=== PATIENT | male | born 1945 | race Caucasian/White ===

== ENCOUNTER 2019-05-20 13:55 | Outpatient (CLI) | payer OTHER, SELFPAY ==
[2019-05-20 14:26] LABS: Basophils # 0.1 10^3/uL (0.0-0.1); Basophils % 0.7 %; Eosinophils # 0.2 10^3/uL (0.0-0.8); Eosinophils % 2.2 %; Hematocrit 39.2 % (42.0-52.0); Hemoglobin 12.4 g/dL (11.7-16.6); Lymphocytes # 0.9 10^3/uL (0.8-4.8); Lymphocytes % 10.2 %; Mean Corpuscular HGB Conc 31.6 g/dL (30.0-36.0); Mean Corpuscular Hemoglobin 31.4 pg (28.0-34.0); Mean Corpuscular Volume 99.2 fL (80-94); Mean Platelet Volume 10.2 fL (7.4-10.4); Monocytes # 0.5 10^3/uL (0.2-0.9); Monocytes % 5.8 %; Neutrophils # 7.3 10^3/uL (1.8-7.7); Neutrophils % 80.8 %; Nucleated Red Blood Cells % 0 %; Platelet Count 247 10^3/cmm (130-400); Red Blood Count 3.95 10^6/uL (4.1-5.3)
--- NOTE | 2019-05-20 16:43 | ONC FU_ITS ---
Dr. Menendez follow up note Patient: Valdo Cotto Unit #: [id number]: 1945 Dicatated By: Vania Menendez M.D.Date of Visit:May 20, 2019 Onc Med Follow-up/Prog Note History of Present Illness: Mr. Valdo Cotto, is a 73-year-old gentleman with long-standing history of mild to moderate anemia in the past he was monitored for fluctuating hemoglobin till about 2 years ago when he was started on oral iron once a day and then about 3 months ago his exterminator helper who was following him for mild renal insufficiency increased his iron dose to 2 pills a day. Patient is tolerating oral iron well. And his CBC done on 12/10/2018 showed white blood count 6.7 hemoglobin 10.9 hematocrit 33.8 platelets 181,000 MCV 100.6 with a normal differential. Patient said he underwent colonoscopy about 4 years ago at that time about 4 polyps were removed and there were benign and now he is scheduled for follow-up colonoscopy in a year or so At the same time he underwent EGD for dysphagia and was found to have esophageal spasm but normal gastric findings. Patient also underwent capsule endoscopy about year ago, and was unremarkable. Never had blood transfusion. Patient has history of osteoarthritis, mild renal insufficiency and diabetes Patient denies any jaundice denies any dyspnea on exertion or palpitation denies any night sweats denies any recent fever but intentional weight loss since he start watching his diet and not consuming carbonated beverages and sugar and also cut down salt. Came for follow-up, denies any specific complaints, no fever or chills, no nausea or vomiting, no diarrhea constipation, no shortness of breath or palpitation, tolerating oral iron twice a day well. Medications: Acetaminophen Extra Strength 1 Tablet (of 500 mg) Oral four times a day PRN, Aspirin 1 Tablet (of 81 mg) Oral daily, Atorvastatin Calcium 1 Tablet (of 80 mg) Oral daily, Coenzyme Q10 1 Tablet (of 200 mg) Oral daily, dilTIAZem CD 1 Capsule (of 180 mg) Capsule SR 24 HR Oral daily, dilTIAZem HCl 1 Tablet (of 60 mg) Oral PRN, Dronedarone HCl 1 Tablet (of 400 mg) Oral b.i.d., Eliquis 1 Tablet (of 5 mg) Oral b.i.d., Ferrous Sulfate 1 Tablet (of 325 (65 fe) mg) Oral b.i.d., Fish Oil 1 Capsule (of 1000 mg) Oral b.i.d., Gabapentin 1 Tablet (of 600 mg) Oral b.i.d., Garlic 1 Capsule (of 1000 mg) Oral daily, glipiZIDE 1 Tablet (of 20 mg) Oral b.i.d., Hydrocortisone 1 (2.5 %) Cream Topical PRN, Insulin Glargine 55 Units (of 100 Units/mL) Subcutaneous daily, Lasix 1 Tablet (of 60 mg) Oral b.i.d., Losartan Potassium 1 Tablet (of 50 mg) Oral daily, Magnesium Oxide 1 Tablet (of 500 mg) Oral daily, Melatonin 1 Tablet (of 6 mg) Oral at bedtime, Metoprolol Succinate ER 1 Tablet (of 150 mg) Tablet SR 24 HR Oral daily, Multivitamin Adults 1 Tablet Oral daily, Nitrostat Tablet, sublingual Sublingual PRN, Tamsulosin HCl 1 Capsule (of 0.4 mg) Oral daily, traMADol HCl 1 Tablet (of 50 mg) Oral b.i.d. PRN, Vitamin D 1 Tablet Oral daily Allergies: ambien, Meloxicam, morphine, Zetia, and Zocor. Review of Systems: Review of Systems is not available for this patient. Vital Signs: Performed on May 20, 2019 15:34 Height - 68.00 in Weight - 251.8 lbs (LOW) BSA - 2.25 sq.m BMI - 38.29 (HIGH) Temperature - 98.8 F Pulse - 64 /min Respiration - 24 /min BP - 164/67 mm(hg) (HIGH) O2 Sat - 98 % Pain - 8 Performance Status: Perf. Status is not available for this patient. Physical Examination: ENMT - No oral exudates, ulcers, masses, thrush or mucositis. Oropharynx clear. Tongue normal, Respiratory - Lungs are clear to auscultation without rhonchi or wheezing, Cardiovascular - Regular rate and rhythm of heart, Abdomen - Non-tender, non-distended, Good bowel sounds. No guarding or rebound tenderness. No pulsatile masses, Extremities - no edema. Lab/Imaging: Test performed on Jan 09, 2019 13:55 WBC 10.2 10 3/uL RBC 3.91 10 6/uL HGB 12.3 g/dL HCT 38.4 % MCV 98.2 fl MCH 31.5 pg MCHC 32.0 g/dl RDW 14.3 % Platelet Count 238 10 3/cmm MPV 10.7 fl Neutrophils 8.2 10 3/uL Lymphocytes 1.0 10 3/uL Monocytes 0.7 10 3/uL Eosinophils 0.2 10 3/uL Basophils 0.0 10 3/uL Neutrophil % 80.5 % Lymphocyte % 9.4 % Monocyte % 7.1 % Eosinophil % 2.0 % Basophils % 0.2 % Impression: History of iron deficiency anemia responding well to oral iron supplement with normalization of hemoglobin as per CBC done on 01/09/2019 showed white blood count 10.2 hemoglobin 12.3 hematocrit 38.4, platelets 238,000 History of osteoarthritis History of mild renal insufficiency Diabetes mellitus Hypertension/CAD Atrial fibrillation Plan: Discussed with patient regarding his labs white blood count 9 hemoglobin 12.4 crit 39 platelets 247,000 Clinically, patient doing well, more energetic, tolerating oral iron well, hemoglobin is a normal range. At this point we will reduce his iron supplement to 1 tablet a day along with vitamin C and patient return to clinic in 3 months with CBC and iron studies and if it stay within normal limits then we'll see him on as-needed basis on the other hand if there is a drop in his iron stores, may consider parenteral iron. Signed By: Vania Menendez M.D. <<Signature on File>>
== END 2019-05-20 13:56 | disposition home or self-care (01) ==
PROVIDERS: Family Provider Internal Medicine; PCP Internal Medicine; Visit Provider Internal Medicine Hematology & Oncology
DX: D50.9 Iron deficiency anemia, unspecified (principal); M19.90 Unspecified osteoarthritis, unspecified site; E11.22 Type 2 diabetes mellitus with diabetic chronic kidney disease; I12.9 Hypertensive chronic kidney disease with stage 1 through stage 4 chronic kidney disease, or unspecified chronic kidney disease; N18.2 Chronic kidney disease, stage 2 (mild); I25.10 Atherosclerotic heart disease of native coronary artery without angina pectoris; I48.91 Unspecified atrial fibrillation; Z79.82 Long term (current) use of aspirin; Z79.891 Long term (current) use of opiate analgesic
CPT/HCPCS: 85025; G0463

== ENCOUNTER → 2019-07-29 08:25 | Outpatient (BNVA) | payer OTHER, SELFPAY | PROVIDERS: Family Provider Internal Medicine; PCP Internal Medicine; Referring Provider Internal Medicine; Visit Provider Specialist | DX: G51.0 Bell's palsy (principal) | CPT/HCPCS: 99204 ==

== ENCOUNTER 2019-08-20 13:59 | Outpatient (CLI) | payer OTHER, SELFPAY ==
[2019-08-20 14:29] LABS: Basophils % 0.4 %; Eosinophils # 0.2 10^3/uL (0.0-0.8); Eosinophils % 2.3 %; Hematocrit 39.1 % (42.0-52.0); Hemoglobin 12.7 g/dL (11.7-16.6); Lymphocytes # 0.8 10^3/uL (0.8-4.8); Lymphocytes % 10.8 %; Mean Corpuscular HGB Conc 32.5 g/dL (30.0-36.0); Mean Corpuscular Hemoglobin 30.5 pg (28.0-34.0); Mean Corpuscular Volume 93.8 fL (80-94); Mean Platelet Volume 9.6 fL (7.4-10.4); Monocytes # 0.5 10^3/uL (0.2-0.9); Monocytes % 7.2 %; Neutrophils # 5.8 10^3/uL (1.8-7.7); Neutrophils % 78.8 %; Nucleated Red Blood Cells % 0 %; Platelet Count 175 10^3/cmm (130-400); Red Blood Count 4.17 10^6/uL (4.1-5.3); Red Cell Distribution Width 15.6 % (12.1-15.1); White Blood Count 7.4 10^3/uL (4.0-10.0)
[2019-08-20 14:53] LABS: Ferritin 149 ng/mL (30-400); Iron 56 ug/dL (59-158); Percent Saturation 20.2 % (20-50); Total Iron Binding Capacity 276 mcg/dl; Unsaturated Iron Binding 220 ug/dL (112-347)
--- NOTE | 2019-08-20 15:23 | ONC FU_ITS ---
Dr. Menendez follow up note Patient: Valdo Cotto Unit #: [id number]: 1945 Dicatated By: Vania Menendez M.D.Date of Visit:Aug 20, 2019 Onc Med Follow-up/Prog Note History of Present Illness: Mr. Valdo Cotto, is a 74-year-old gentleman with long-standing history of mild to moderate anemia in the past he was monitored for fluctuating hemoglobin till about 2 years ago when he was started on oral iron once a day and then about 3 months ago his night order selector who was following him for mild renal insufficiency increased his iron dose to 2 pills a day. Patient is tolerating oral iron well. And his CBC done on 12/10/2018 showed white blood count 6.7 hemoglobin 10.9 hematocrit 33.8 platelets 181,000 MCV 100.6 with a normal differential. Patient said he underwent colonoscopy about 4 years ago at that time about 4 polyps were removed and there were benign and now he is scheduled for follow-up colonoscopy in a year or so At the same time he underwent EGD for dysphagia and was found to have esophageal spasm but normal gastric findings. Patient also underwent capsule endoscopy about year ago, and was unremarkable. Never had blood transfusion. Patient has history of osteoarthritis, mild renal insufficiency and diabetes Patient denies any jaundice denies any dyspnea on exertion or palpitation denies any night sweats denies any recent fever but intentional weight loss since he start watching his diet and not consuming carbonated beverages and sugar and also cut down salt. Came for follow-up, denies any specific complaints except since his last visit, episode of fall and he stopped taking baby aspirin since then. Otherwise no melena or hematochezia no hemoptysis or hematemesis no jaundice, no hematuria or dysuria, no shortness of breath or palpitation at rest,, tolerating oral iron twice a day well. Medications: Acetaminophen Extra Strength 1 Tablet (of 500 mg) Oral four times a day PRN, Atorvastatin Calcium 1 Tablet (of 80 mg) Oral daily, Coenzyme Q10 1 Tablet (of 200 mg) Oral daily, dilTIAZem CD 1 Capsule (of 180 mg) Capsule SR 24 HR Oral daily, dilTIAZem HCl 1 Tablet (of 60 mg) Oral PRN, Dronedarone HCl 1 Tablet (of 400 mg) Oral b.i.d., Eliquis 1 Tablet (of 5 mg) Oral b.i.d., Ferrous Sulfate 1 Tablet (of 325 (65 fe) mg) Oral b.i.d., Fish Oil 1 Capsule (of 1000 mg) Oral b.i.d., Gabapentin 1 Tablet (of 600 mg) Oral b.i.d., Garlic 1 Capsule (of 1000 mg) Oral daily, glipiZIDE 1 Tablet (of 20 mg) Oral b.i.d., Hydrocortisone 1 (2.5 %) Cream Topical PRN, Insulin Glargine 55 Units (of 100 Units/mL) Subcutaneous daily, Lasix 1 Tablet (of 60 mg) Oral b.i.d., Losartan Potassium 1 Tablet (of 50 mg) Oral daily, Magnesium Oxide 1 Tablet (of 500 mg) Oral daily, Melatonin 1 Tablet (of 6 mg) Oral at bedtime, Metoprolol Succinate ER 1 Tablet (of 150 mg) Tablet SR 24 HR Oral daily, Multivitamin Adults 1 Tablet Oral daily, Nitrostat Tablet, sublingual Sublingual PRN, Tamsulosin HCl 1 Capsule (of 0.4 mg) Oral daily, traMADol HCl 1 Tablet (of 50 mg) Oral b.i.d. PRN, Vitamin D 1 Tablet Oral daily Allergies: ambien, Meloxicam, morphine, Zetia, and Zocor. Review of Systems: Review of Systems is not available for this patient. Vital Signs: Performed on Aug 20, 2019 14:59 Height - 68.00 in Weight - 248.2 lbs (LOW) BSA - 2.24 sq.m BMI - 37.74 (HIGH) Temperature - 99.2 F (HIGH) Pulse - 55 /min (LOW) Respiration - 24 /min BP - 134/61 mm(hg) O2 Sat - 96 % Pain - 0 Performance Status: 1 - No physically strenuous activity, but ambulatory and able to carry out light or sedentary work (e.g. office work, light house work). (ECOG) Physical Examination: ENMT - No mouth sores, no thrush, no jaundice, Respiratory - Lungs are clear, Cardiovascular - irRegular rate and rhythm, Abdomen - Soft, bowel sounds present, Extremities - No visible edema. Lab/Imaging: Test performed on Aug 20, 2019 14:15 WBC 7.4 10 3/uL RBC 4.17 10 6/uL HGB 12.7 g/dL HCT 39.1 % MCV 93.8 fL MCH 30.5 pg MCHC 32.5 g/dL RDW 15.6 % Platelet Count 175 10 3/cmm MPV 9.6 fL Neutrophils 5.8 10 3/uL Lymphocytes 0.8 10 3/uL Monocytes 0.5 10 3/uL Eosinophils 0.2 10 3/uL Basophils 0.0 10 3/uL Neutrophil % 78.8 % Lymphocyte % 10.8 % Monocyte % 7.2 % Eosinophil % 2.3 % Basophils % 0.4 % NRBC % 0 % Impression: History of iron deficiency anemia responding well to oral iron supplement with normalization of hemoglobin as per CBC done on 01/09/2019 showed white blood count 10.2 hemoglobin 12.3 hematocrit 38.4, platelets 238,000 History of osteoarthritis History of mild renal insufficiency Diabetes mellitus Hypertension/CAD Atrial fibrillation Plan: Discussed with patient regarding his labs white blood count 7.4 hemoglobin 12.7 hematocrit 39.1 platelets 175,000 MCV 93.8 ferritin 149 iron saturation 20.2% iron 56 TIBC 276 Clinically, patient is doing well, tolerating oral iron well, his follow-up labs shows hemoglobin is in normal range and continue to improve and his iron stores on the low side of normal range. At this point no more new recommendation from hematological point of view rather continue with oral iron and follow-up with primary care physician as planned and will see him on as-needed basis Signed By: Vania Menendez M.D. <<Signature on File>>
== END 2019-08-20 14:00 | disposition home or self-care (01) ==
LOC: ONCMED 14:01
PROVIDERS: PCP Internal Medicine; Visit Provider Internal Medicine Hematology & Oncology
DX: D50.9 Iron deficiency anemia, unspecified (principal); M19.90 Unspecified osteoarthritis, unspecified site; E11.9 Type 2 diabetes mellitus without complications; I10 Essential (primary) hypertension; I25.10 Atherosclerotic heart disease of native coronary artery without angina pectoris; I48.91 Unspecified atrial fibrillation; Z79.4 Long term (current) use of insulin; Z87.448 Personal history of other diseases of urinary system
CPT/HCPCS: 82728; 83540; 83550; 85025; G0463

== ENCOUNTER 2019-11-12 14:03 | Emergency (ER) | payer OTHER, SELFPAY ==
[2019-11-12 14:09] VITALS: BP 153/53; PULSE 69; RESP 18; TEMP 37.2; O2SAT 98; BMI 36.5
[2019-11-12 14:19] VITALS: BP 153/53; PULSE 64; RESP 18; TEMP 36.9; O2SAT 96
--- NOTE | 2019-11-12 14:29 | ED_ITS ---
HPI - General Adult General: Chief complaint: General Medical Stated complaint: [facility] Time Seen by Provider: 11/12/19 14:06 Source: patient Mode of arrival: ambulatory Limitations: no limitations History of Present Illness: HPI narrative: Patient is a 74-year-old male who presents to ED today stating [facility] when his screening vitals showed a temperature of 100.4. Patient states he was not able to enter the building because of this. Patient has absolutely no symptoms. He is telling me he needed refills of his diabetic lancets and testing strips thus came to the emergency department. Patient is afebrile upon arrival. Associated symptoms: Deny chest pain, dyspnea, headache(s), malaise, nausea, palpitations, syncope or vomiting Review of Systems Const: Denies: fever(s), chills, body aches or malaise Eyes: Denies: change in vision or blurry vision ENMT: Denies: odynophagia Card: Reports: swelling of feet/ankles (chronic ); Denies: chest pain, palpitations, irregular heart rhythm, edema, lightheadedness, syncope or pre-syncope Resp: Reports: productive cough (chronic); Denies: dyspnea GI: Denies: abdominal pain, nausea, vomiting or diarrhea : Denies: dysuria Musc: Denies: neck pain or back pain Neuro: Denies: headache(s), numbness in extremities, weakness in extremities or sensory changes Physical Exam Const: COMMON NORMALS: no acute distress, patient oriented x3, no limitations and alert ORIENTATION/CONSCIOUSNESS: Yes oriented to person, Yes oriented to place and Yes oriented to time HENMT: COMMON NORMALS: normocephalic and atraumatic HEAD & SCALP: normocephalic and atraumatic Resp: COMMON NORMALS: normal respiratory effort and clear to auscultation bilaterally EFFORT & INSPECTION: Yes able to speak in complete sentences AUSCULTATION: clear to auscultation bilaterally Cardio: COMMON NORMALS: regular rate and regular rhythm RATE: regular rate RHYTHM: regular rhythm GI: COMMON NORMALS: Soft to palpation and non-tender INSPECTION: Yes other (large lower abdominal defect-evaluated for previously and told it was a fatty deposit and not a hernia) PALPATION: Yes Soft to palpation Extremity: OTHER: Bilateral lower extremity edema that patient states is chronic Neuro: COMMON NORMALS: patient oriented x3 SENSORIUM/ORIENTATION: Yes alert, Yes oriented to person, Yes oriented to place and Yes oriented to time Course Vital Signs: Vital signs: Vital Signs Temperature 98.4 F 11/12/19 14:19 Pulse Rate 64 11/12/19 14:19 Respiratory Rate 18 11/12/19 14:19 Blood Pressure 153/53 11/12/19 14:19 Pulse Oximetry 96 11/12/19 14:19 MDM - General Adult MDM Narrative: Medical decision making narrative: Patient has absolutely no physical complaints apart from his chronic medical problems. Again he is afebrile upon arrival. He was needing diabetic lancets and test strips. I have offered to write him a prescription for these however [facility]. He is requesting that [facility] to the [facility] and [facility] these. I have spoken to the [facility] who is going to contact patient's provider to call in a refill for these. Again patient states he has no physical complaints and states there is nothing else I can do for him today. Discharge Plan Discharge Patient Disposition: Home Clinical Impression: Encounter for issue of repeat prescription Condition: Stable Prescriptions: No Action acetaminophen [Tylenol Extra Strength] 500 mg tablet 500 mg PO Q6H PRN (Reason: Pain) RF: 0 allopurinol 100 mg tablet 150 mg PO BID RF: 0 aspirin [Adult Aspirin Regimen] 81 mg tablet,delayed release (DR/EC) 81 mg PO DAILY RF: 0 atorvastatin 80 mg tablet 80 mg PO DAILY RF: 0 diltiazem HCl 180 mg capsule,extended release 24hr 180 mg PO DAILY RF: 0 dronedarone 400 mg tablet 400 mg PO BID RF: 0 omega-3 fatty acids [Fish Oil Concentrate] 1,000 mg capsule 1,000 mg PO BID RF: 0 furosemide 20 mg tablet 60 mg PO BID RF: 0 glipizide 10 mg tablet 20 mg PO BID RF: 0 insulin glargine 100 unit/mL solution 100 unit SUBCUT DAILY RF: 0 losartan 100 mg tablet 50 mg PO DAILY RF: 0 magnesium oxide 400 mg (241.3 mg magnesium) tablet 400 mg PO DAILY RF: 0 melatonin 3 mg capsule 3 mg PO DAILY RF: 0 Ultra CoQ10 75 mg capsule 75 mg PO DAILY RF: 0 garlic 1,000 mg capsule 1,000 mg PO DAILY RF: 0 apixaban 5 mg tablet 5 mg PO BID RF: 0 cholecalciferol (vitamin D3) 50 mcg (2,000 unit) capsule 50 mcg PO DAILY RF: 0 ferrous sulfate 325 mg (65 mg iron) tablet 325 mg PO BID RF: 0 gabapentin 600 mg tablet 600 mg PO DAILY RF: 0 metoprolol succinate 100 mg capsule,sprinkle,ER 24hr 100 mg PO DAILY RF: 0 multivitamin Capsule 1 cap PO DAILY RF: 0 tamsulosin 0.4 mg capsule 0.4 mg PO DAILY RF: 0 tramadol 50 mg tablet 50 mg PO BID PRN (Reason: Pain) RF: 0 Discharge Orders: Discharge Order (Routine); Ordered 11/12/19 Ordered By: Licha Chan Referrals: Brian Gan [Primary Care Provider] - Activity Restrictions/Additional Instructions: I have contacted the [facility] and they have stated they will contact the provider to call in refills for your lancets and diabetic test strips. Coding Level of Care Code ED Handcrew Foreman for Chg Fwd Exam Detailed
[2019-11-12 15:08] VITALS: BP 137/57; PULSE 61; RESP 18; TEMP 36.9; O2SAT 95
== END 2019-11-12 15:11 | disposition home or self-care (01) ==
PROVIDERS: Emergency Provider Physician Assistant; PCP Internal Medicine
DX: Z76.0 Encounter for issue of repeat prescription (principal); Z79.82 Long term (current) use of aspirin; Z79.4 Long term (current) use of insulin
CPT/HCPCS: 12345; 99281

== ENCOUNTER 2020-09-23 09:44 | Outpatient (CLI) | payer OTHER, SELFPAY | END 2020-09-23 09:45 | disposition home or self-care (01) | LOC: WOUND 09:50 | PROVIDERS: PCP Internal Medicine; Visit Provider Nurse Practitioner Family | DX: E11.622 Type 2 diabetes mellitus with other skin ulcer (principal); L97.829 Non-pressure chronic ulcer of other part of left lower leg with unspecified severity; L97.819 Non-pressure chronic ulcer of other part of right lower leg with unspecified severity | CPT/HCPCS: G0463 ==

== ENCOUNTER 2020-09-27 10:39 | Outpatient (CLI) | payer OTHER, SELFPAY | END 2020-09-27 10:40 | disposition home or self-care (01) | LOC: WOUND 10:40 | PROVIDERS: PCP Internal Medicine; Visit Provider Nurse Practitioner Family | DX: E11.622 Type 2 diabetes mellitus with other skin ulcer (principal); L97.821 Non-pressure chronic ulcer of other part of left lower leg limited to breakdown of skin | CPT/HCPCS: 11042 ==

== ENCOUNTER 2020-10-04 10:17 | Outpatient (CLI) | payer OTHER, SELFPAY | END 2020-10-04 10:18 | disposition home or self-care (01) | LOC: WOUND 10:17 | PROVIDERS: PCP Internal Medicine; Visit Provider Nurse Practitioner Family | DX: Z09 Encounter for follow-up examination after completed treatment for conditions other than malignant neoplasm (principal); Z87.891 Personal history of nicotine dependence | CPT/HCPCS: 99212 ==

== ENCOUNTER 2020-10-18 10:39 | Outpatient (CLI) | payer OTHER, SELFPAY | END 2020-10-18 10:40 | disposition home or self-care (01) | LOC: WOUND 10:40 | PROVIDERS: PCP Internal Medicine; Visit Provider Nurse Practitioner Family | DX: E11.622 Type 2 diabetes mellitus with other skin ulcer (principal); L97.819 Non-pressure chronic ulcer of other part of right lower leg with unspecified severity; L97.829 Non-pressure chronic ulcer of other part of left lower leg with unspecified severity; Z87.891 Personal history of nicotine dependence | CPT/HCPCS: 29581 ==

== ENCOUNTER 2020-10-25 09:47 | Outpatient (CLI) | payer OTHER, SELFPAY | END 2020-10-25 09:48 | disposition home or self-care (01) | LOC: WOUND 09:47 | PROVIDERS: PCP Internal Medicine; Visit Provider Emergency Medicine | DX: Z09 Encounter for follow-up examination after completed treatment for conditions other than malignant neoplasm (principal); Z87.891 Personal history of nicotine dependence | CPT/HCPCS: 29581; 99203 ==

== ENCOUNTER 2020-11-01 10:30 | Outpatient (CLI) | payer OTHER, SELFPAY | END 2020-11-01 10:31 | disposition home or self-care (01) | LOC: WOUND 10:30 | PROVIDERS: PCP Internal Medicine; Visit Provider Emergency Medicine | DX: M79.89 Other specified soft tissue disorders (principal) | CPT/HCPCS: 29581 ==

== ENCOUNTER 2020-11-09 10:56 | Outpatient (CLI) | payer OTHER, SELFPAY | END 2020-11-09 10:57 | disposition home or self-care (01) | LOC: WOUND 10:57 | PROVIDERS: PCP Internal Medicine; Visit Provider Emergency Medicine | DX: R23.8 Other skin changes (principal); Z87.891 Personal history of nicotine dependence | CPT/HCPCS: 29581 ==

== ENCOUNTER 2020-11-17 13:29 | Outpatient (CLI) | payer OTHER, MEDICARE, SELFPAY ==
--- NOTE | 2020-11-17 13:35 | USCV_ITS ---
Valdo Cotto Age: 75 Gender: M : 1945 Exam Date: 11/17/2020 13:59 Ordering Phys: Marla Verde DO Technologist: Ericka Morales [place] [facility] [place]: HISTORY: Ulcers. PROCEDURES: Bilateral duplex Venous Insufficiency study of the Deep and Superficial systems was carried out according to normal protocol with the patient in supine positon for deep system and dependent position for the superficial system. FINDINGS: No notable reflux was seen at this time. There is no evidence of bilateral deep vein thrombosis. No evidence of superficial thrombosis in the bilateral saphenous system. CONCLUSIONS No evidence of DVT in the above-mentioned identifiable veins. No significant venous reflux in the above-mentioned identifiable veins. Normal venous dimensions. Dr Tierney Melendez MD [facility] (Electronically Signed) Final Date: 19 November 2020 10:49 S
== END 2020-11-17 13:30 | disposition home or self-care (01) ==
LOC: US 13:31
PROVIDERS: PCP Family Medicine; Visit Provider Emergency Medicine
DX: E11.621 Type 2 diabetes mellitus with foot ulcer (principal); I87.2 Venous insufficiency (chronic) (peripheral)
CPT/HCPCS: 93970

== ENCOUNTER 2020-11-18 13:38 | Outpatient (CLI) | payer OTHER, SELFPAY | END 2020-11-18 13:39 | disposition home or self-care (01) | LOC: WOUND 13:39 | PROVIDERS: PCP Family Medicine; Visit Provider Emergency Medicine | DX: I89.0 Lymphedema, not elsewhere classified (principal); Z87.891 Personal history of nicotine dependence | CPT/HCPCS: 29581; 99212 ==

== ENCOUNTER 2020-11-24 14:43 | Outpatient (CLI) | payer OTHER, SELFPAY ==
--- NOTE | 2020-11-24 14:56 | USCV_ITS ---
Valdo Cotto Age: 75 Gender: M : 1945 Exam Date: 11/24/2020 15:24 Ordering Phys: Daisy Simmons MD Technologist: Genevieve Morales Exam Location: [facility] – [place] Indication: EDEMA Risk Factors: Previous Vascular Surgery: RIGHT LEFT BP: 1590. / 72.00 BP: 154.0/ 75.00 00 0 Waveform Velocity (cm/s) Velocity (cm/s) Waveform Biphasic 109.3 Iliac Prox 70.3 Biphasic Biphasic 125.8 Iliac Mid 65.8 Biphasic Biphasic Iliac Distal Biphasic 118.8 85.4 Biphasic 119.6 NAVAL AIRCREWMAN HELICOPTER 123.6 Biphasic Biphasic 100.4 SFA Prox 65.1 Biphasic Biphasic 93.8 SFA Mid 98.1 Biphasic Biphasic 98.7 SFA Dist 54.6 Biphasic Biphasic 47.6 POP 72.3 Biphasic Biphasic 63.2 STEAMFITTER APPRENTICE 39.7 Biphasic Biphasic 36.8 DPA 36.1 Biphasic FINDINGS RT DPA, RT STEAMFITTER APPRENTICE, LT DPA, LT STEAMFITTER APPRENTICE >220 Super normal resting ABIs bilaterally. Normal Doppler flow velocities CONCLUSIONS 1. Features of extensive arterial sclerosis. 2. No significant arterial obstruction, based on the above findings Dr Tierney Melendez MD [facility] (Electronically Signed) Final Date: 25 November 2020 15:43 S
== END 2020-11-24 14:44 | disposition home or self-care (01) ==
LOC: US 14:44
PROVIDERS: PCP Family Medicine; Visit Provider Family Medicine
DX: R60.9 Edema, unspecified (principal)
CPT/HCPCS: 93925

== ENCOUNTER 2020-11-25 13:02 | Outpatient (CLI) | payer OTHER, SELFPAY | END 2020-11-25 13:03 | disposition home or self-care (01) | LOC: WOUND 13:03 | PROVIDERS: PCP Family Medicine; Visit Provider Emergency Medicine | DX: Z09 Encounter for follow-up examination after completed treatment for conditions other than malignant neoplasm (principal); Z87.891 Personal history of nicotine dependence | CPT/HCPCS: 99212 ==

== ENCOUNTER 2020-12-02 13:55 | Outpatient (CLI) | payer OTHER, SELFPAY | END 2020-12-02 13:56 | disposition home or self-care (01) | LOC: WOUND 13:55 | PROVIDERS: PCP Family Medicine; Visit Provider Nurse Practitioner Family | DX: I87.2 Venous insufficiency (chronic) (peripheral) (principal); L97.821 Non-pressure chronic ulcer of other part of left lower leg limited to breakdown of skin; Z87.891 Personal history of nicotine dependence | CPT/HCPCS: 11042 ==

== ENCOUNTER 2020-12-09 14:24 | Outpatient (CLI) | payer OTHER, SELFPAY | END 2020-12-09 14:25 | disposition home or self-care (01) | LOC: WOUND 14:25 | PROVIDERS: PCP Family Medicine; Visit Provider Nurse Practitioner Family | DX: Z09 Encounter for follow-up examination after completed treatment for conditions other than malignant neoplasm (principal); Z87.891 Personal history of nicotine dependence | CPT/HCPCS: 99212 ==

== ENCOUNTER → 2020-12-20 14:07 | Outpatient (BNVA) | payer OTHER, SELFPAY | PROVIDERS: PCP Family Medicine; Referring Provider Internal Medicine; Visit Provider Internal Medicine | DX: Z01.812 Encounter for preprocedural laboratory examination (principal); Z86.010 Personal history of colon polyps; Z20.822 Contact with and (suspected) exposure to COVID-19 | CPT/HCPCS: 87635 ==

== ENCOUNTER 2020-12-27 07:51 | Day surgery (SDC) | payer OTHER, SELFPAY ==
[2020-12-22 13:15] VITALS: BMI 38.0
--- NOTE | 2020-12-27 07:26 | W.PM.OPSFHP ---
Same Day Surgery H&P Indication for Procedure/HPI DATE OF PROCEDURE: December 27, 2020 CHIEF COMPLAINT/INDICATIONFOR SURGICAL PROCEDURE: Screening, history of polyp PREOP DIAGNOSIS: Screening, history of polyp PLANNED PROCEDRUE: Operation Date: 12/27/20 09:30 Proposed Procedures p Colonoscopy G0105 Z86.010(Not Applicable) - Thierno Gant MD Medications/Allergies* Home Medications Medication Instructions Recorded Confirmed Type acetaminophen 500 mg tablet 500 mg PO Q6H PRN 07/29/19 12/22/20 History allopurinol 100 mg tablet 150 mg PO BID tab 07/29/19 12/22/20 History apixaban 5 mg tablet 5 mg PO BID 07/29/19 12/22/20 History atorvastatin 80 mg tablet 80 mg PO DAILY 07/29/19 12/22/20 History cholecalciferol (vitamin D3) 50 50 mcg PO DAILY 07/29/19 12/22/20 History mcg (2,000 unit) capsule coenzyme Q10 75 mg capsule 75 mg PO DAILY 07/29/19 12/22/20 History diltiazem HCl 180 mg 180 mg PO DAILY 07/29/19 12/22/20 History capsule,extended release 24 hr dronedarone 400 mg tablet 400 mg PO BID 07/29/19 12/22/20 History ferrous sulfate 325 mg (65 mg 325 mg PO BID 07/29/19 12/22/20 History iron) tablet furosemide 20 mg tablet 60 mg PO BID 07/29/19 12/22/20 History gabapentin 600 mg tablet 600 mg PO BID 07/29/19 12/22/20 History garlic 1,000 mg capsule 1,000 mg PO DAILY 07/29/19 12/22/20 History glipizide 10 mg tablet 20 mg PO BID tab 07/29/19 12/22/20 History insulin glargine 100 unit/mL 62 unit SUBCUT DAILY 07/29/19 12/22/20 History subcutaneous solution losartan 100 mg tablet 25 mg PO DAILY tab 07/29/19 12/22/20 History magnesium oxide 400 mg (241.3 mg 400 mg PO DAILY 07/29/19 12/22/20 History magnesium) tablet melatonin 3 mg capsule 15 mg PO DAILY 07/29/19 12/22/20 History metoprolol succinate 100 mg 150 mg PO DAILY 07/29/19 12/22/20 History capsule sprinkle, ext. release 24 hr multivitamin 1 cap PO DAILY 07/29/19 12/22/20 History omega-3 fatty acids 1,000 mg 1,000 mg PO BID 07/29/19 12/22/20 History capsule tamsulosin 0.4 mg capsule 0.4 mg PO DAILY 07/29/19 12/22/20 History tramadol 50 mg tablet 50 mg PO BID PRN 07/29/19 12/22/20 History Allergies/Adverse Reactions Allergy/AdvReac Type Severity Reaction Status Date / Time ezetimibe [From Zetia] Allergy Unknown Verified 12/22/20 13:56 meloxicam Allergy Unknown Verified 12/22/20 13:56 morphine Allergy ADR-Halluci Verified 12/22/20 13:56 nating simvastatin [From Zocor] Allergy Unknown Verified 12/22/20 13:56 Pertinent History/Comorbid Conditions* Family History (Updated 11/03/20 @ 14:14 by JOSE Baig) Diabetes Brother Social History Smoking and tobacco status: former smoker Adopted: No Marital status: Single service: Yes History of recent travel: No Pertinent Exam Findings alert, oriented x 3, clear to auscultation bilaterally, regular rate & rhythm, operative site marked and procedure specific exam findings Recommendations Surgery/Procedure today Coding Level of Care Code Acute Cloth Desizing Range Operator Chief for Edna Ahmadi
--- NOTE | 2020-12-27 08:23 | ANES.PREANE2 ---
Pre-Anesthetic Assessment Pre-Anesthetic Assessment: Height/Weight: Height 1.73 m Weight 113.398 kg Preop Diagnosis: history of polyps Proposed Procedure: Operation Date: 12/27/20 09:30 Proposed Procedures p Colonoscopy G0105 Z86.010(Not Applicable) - Thierno Gant MD Was Beta Zoran taken within 24 hours: Yes Was Clonidine taken within 24 hours: N/A Social: Social History: No tobacco Comment: Quit smoking > 30 yrs ago. Exam: Pre-Anes Outpt Exam: alert, oriented x 3, clear to auscultation bilaterally and regular rate & rhythm Airway: Submandibular: WNL Cervical ROM: WNL MP: 2 Dentition: Full Additional comments: Full denture, normally only wears upper. History/ROS: No significant complaints CV/HEM: CV/HEM: CAD, HTN and VT Metabolic: Metabolic: DM and Morbid obesity Anesthetic Plan: ASA status: 3 Anesthesia: MAC Risk of > 500 ml blood loss (7ml/kg in children): No PFSH Anesthesia PFSH: Family History (Updated 11/03/20 @ 14:[address]) Brother Diabetes Social History (Updated 11/03/20 @ 14:[address]) Smoking and tobacco status: former smoker Adopted: No Marital status: Single service: Yes History of recent travel: No Data Anesthesia Cardiac Studies: No Data to Display
[2020-12-27] MEDS: sodium chloride 0.9% 1,000 ML 30 ML IV (09:03)
[2020-12-27 09:11] LABS: Glucose Point of Care 141 mg/dL (70-110)
[2020-12-27 09:58] VITALS: BP 137/68; PULSE 54; RESP 18; TEMP 36.3; O2SAT 93
[2020-12-27 10:09] VITALS: BP 137/74; PULSE 55; RESP 18; O2SAT 93
--- NOTE | 2020-12-27 12:33 | ANE.PACU2 ---
Inpatient post-anesthesia follow up: Airway intact: Yes Vital signs: Temperature 97.3 F Pulse Rate 55 Respiratory Rate 18 Blood Pressure 137/74 Pulse Oximetry 93 Oxygen Delivery Me thod Room Air Oxygen Flow Rate Fraction of Inspir ed Oxygen Hydration adequate: Yes Nausea and vomiting: No Pain level: 1 Mental status: Baseline
== END 2020-12-27 10:26 | disposition home or self-care (01) ==
PROVIDERS: PCP Family Medicine; Visit Provider Internal Medicine
PROC: 0DJD8ZZ Inspection of Lower Intestinal Tract, Via Natural or Artificial Opening Endoscopic (ICD-10-PCS; CPT 45378; principal; 2020-12-27 09:30)
DX: Z12.11 Encounter for screening for malignant neoplasm of colon (principal); Z86.010 Personal history of colon polyps; K57.30 Diverticulosis of large intestine without perforation or abscess without bleeding; Z83.3 Family history of diabetes mellitus; Z87.891 Personal history of nicotine dependence; I25.10 Atherosclerotic heart disease of native coronary artery without angina pectoris; I10 Essential (primary) hypertension; I25.2 Old myocardial infarction; E11.9 Type 2 diabetes mellitus without complications; E66.01 Morbid (severe) obesity due to excess calories; Z68.38 Body mass index [BMI] 38.0-38.9, adult
CPT/HCPCS: 36416; 45378; 82962; 96360; J2704; J7030